=== PATIENT | male | born 1945 | race Caucasian/White ===

== ENCOUNTER 2017-03-12 13:26 | Inpatient (IN) | payer MEDICARE ==
[~2017-03-12] VITALS: Ht 175.3 cm; Wt 122.7 kg
[~2017-03-12 13:26] MED LIST: AMLODIPINE BESYL5 MG PO; ATIVAN0.5 MG PO; CELEXA40 MG PO; GARLIC1 TAB PO; ONE DAILY1 TA1 PO; VITAMIN E1000 U/CAP PO; ZOCOR 80MG80 MG PO
[2017-05-21] VITALS (13 sets, daily range): BP systolic 101–126; BP diastolic 56–75; PULSE 51–78; TEMP 97.6–98.5
[2017-05-21] MEDS ORDERED: LOPRESSOR 225 MG/TAB PO (01:45)
[2017-05-21] MEDS ORDERED: NORVASC 10MG10 MG PO (01:47)
[2017-05-21] MEDS ORDERED: PROTONIX 40MG T40 MG PO (01:47)
[2017-05-21] MEDS ORDERED: OMEGA-3 1000 MG1 CAP PO (05:38)
[2017-05-21] MEDS ORDERED: LASIX 20MG TABL20 MG PO (05:38)
[2017-05-22 03:37] VITALS: BP 127/61; PULSE 72; TEMP 98.3
[2017-05-22] MEDS ORDERED: ASPI325T6 PO (06:20)
[2017-05-22] MEDS ORDERED: NORCO 325 MG-7.1 TAB PO (06:21)
[2017-05-22] MEDS ORDERED: CELEBREX 200MG200 MG PO (06:21)
[2017-05-22] MEDS ORDERED: ULTRAM 50MG TAB50 MG PO (06:22)
[2017-05-22 07:24] VITALS: BP 108/58; PULSE 64; TEMP 98.2
[2017-05-22 08:07] LABS: HEMOGLOBIN 11.6 g/dl (13.5-18.0)
[2017-05-22 11:49] VITALS: BP 108/51; PULSE 58; TEMP 98.5
== END 2017-05-22 16:17 | disposition home or self-care (01) | DRG 470 ==
LOC: JCC 05-21 05:03
PROVIDERS: Orthopaedic Surgery; Physician Assistant
PROC: 0SRD0J9 Replacement of Left Knee Joint with Synthetic Substitute, Cemented, Open Approach (ICD-10-PCS; principal; 2017-05-21 07:30)
DX: M17.12 Unilateral primary osteoarthritis, left knee (principal); Z87.891 Personal history of nicotine dependence
CPT/HCPCS: A4315; A9284; C1713; C1776; J0690; J1885; J2250; J2704; J3010; J7120; J7121

== ENCOUNTER → 2017-04-09 | Outpatient (CLI) | payer MEDICARE, OTHER | LOC: COL.RAD 11:55 | DX: Z01.818 Encounter for other preprocedural examination (principal); M17.12 Unilateral primary osteoarthritis, left knee ==

== ENCOUNTER 2018-01-06 12:40 | Inpatient (IN) | payer MEDICARE ==
[~2018-01-06] VITALS: Ht 180.3 cm; Wt 121.1 kg
[~2018-01-06 12:40] MED LIST changes: +ASPI325T6 PO; +ATIVAN 0.50.5 MG/TAB PO; -ATIVAN0.5 MG PO; +CELEBREX 200MG200 MG PO; +LASIX 20MG TABL20 MG PO; +LOPRESSOR 225 MG/TAB PO; +NORCO 325 MG-7.1 TAB PO; +NORVASC 10MG10 MG PO; +OMEGA-3 1000 MG1 CAP PO; +PROTONIX 40MG T40 MG PO; +ULTRAM 50MG TAB50 MG PO
[2018-02-27] VITALS (12 sets, daily range): BP systolic 96–143; BP diastolic 53–86; PULSE 45–80; TEMP 97.1–98.1
[2018-02-27] MEDS ORDERED: FLOMAX 0.40.4 MG/CAP PO (05:28)
[2018-02-27] MEDS ORDERED: LIPITOR 80MG80 MG PO (05:31)
[2018-02-28 04:18] VITALS: BP 147/72; PULSE 74; TEMP 98.2
[2018-02-28] MEDS ORDERED: NORCO 325 MG-7.1 TAB PO (06:08)
[2018-02-28] MEDS ORDERED: XARELTO10 MG PO (06:08)
[2018-02-28] MEDS ORDERED: ULTRAM 50MG TAB50 MG PO (06:09)
[2018-02-28 08:00] VITALS: BP 139/78; PULSE 65; TEMP 98.1
[2018-02-28 08:33] LABS: HEMATOCRIT 37.8 % (42.0-52.0); HEMOGLOBIN 13.5 g/dl (13.5-18.0)
[2018-02-28 12:50] VITALS: BP 124/65; PULSE 62
[2018-02-28 13:08] VITALS: TEMP 98.2
[2018-02-28 16:10] VITALS: BP 128/63; PULSE 69; TEMP 98.2
[2018-02-28 19:33] VITALS: BP 149/68; PULSE 73; TEMP 98.7
[2018-03-01 03:36] VITALS: BP 126/64; PULSE 83; TEMP 98.2
[2018-03-01 06:48] LABS: HEMOGLOBIN 12.4 g/dl (13.5-18.0)
[2018-03-01 06:55] LABS: HEMATOCRIT 35.1 % (42.0-52.0)
[2018-03-01 07:49] VITALS: BP 130/65; PULSE 83; TEMP 98.3
== END 2018-03-01 10:08 | disposition home or self-care (01) | DRG 470 ==
LOC: JCC 02-27 05:04
PROVIDERS: Orthopaedic Surgery; Physician Assistant
PROC: 0SRC0J9 Replacement of Right Knee Joint with Synthetic Substitute, Cemented, Open Approach (ICD-10-PCS; principal; 2018-02-27 07:30)
DX: M17.11 Unilateral primary osteoarthritis, right knee (principal); Z87.891 Personal history of nicotine dependence
CPT/HCPCS: A9284; C1713; C1776; J0461; J0690; J1100; J2250; J2270; J2405; J2704; J3010; J7120